=== PATIENT | female | born 1985 | race Caucasian/White ===

== ENCOUNTER 2017-04-19 04:48 | Emergency (ER) | payer MEDICAID, OTHER ==
[~2017-04-19] VITALS: Ht 160 cm; Wt 59.0 kg
[2017-04-19 04:58] VITALS: BP_SYST 113
[2017-04-19 05:46] LABS: BILIRUBIN,URINE NEGATIVE (NEGATIVE); BLOOD, URINE 2+ (NEGATIVE); CLARITY/URINE SL CLOUDY (CLEAR); COLOR,URINE ORANGE (YELLOW); GLUCOSE,URINE 1+ (NEGATIVE); KETONES,URINE TRACE (NEGATIVE); LEUKOCYTE ESTERASE ,URINE 2+ (NEGATIVE); NITRITE, URINE POSITIVE (NEGATIVE); PROTEIN URINE 2+ (NEGATIVE)
[2017-04-19 05:51] LABS: BACTERIA,URINE MODERATE /HPF (None Seen); WBC,URINE >100 /HPF (0-3)
[2017-04-19 05:55] VITALS: BP_SYST 113
[2017-04-21 02:22] LABS: CHLAMYDIA TRACHOMATIS NAA Negative (Negative); NEISSERIA GONORRHOEAE NAA Negative (Negative)
== END 2017-04-19 05:55 | disposition home or self-care (01) ==
LOC: SED 04:48
DX: N76.0 Acute vaginitis (principal); B96.89 Other specified bacterial agents as the cause of diseases classified elsewhere; G43.909 Migraine, unspecified, not intractable, without status migrainosus; Z88.8 Allergy status to other drugs, medicaments and biological substances
CPT/HCPCS: 81000-TC; 81025; 87086; 87210-TC; 87491; 87591; 99284

== ENCOUNTER 2019-11-22 11:23 | Emergency (ER) | payer MEDICAID ==
[~2019-11-22] VITALS: Ht 160 cm; Wt 59.9 kg
[2019-11-22 11:43] VITALS: BP_SYST 115
[2019-11-22] MEDS ORDERED: ONDANSETRON HCL 4 MG/2 ML VIAL IVP ONE (11:45)
[2019-11-22 12:12] LABS: BASOPHILS # (AUTO) 0.1 K/uL (0.0-0.2); BASOPHILS % (AUTO) 0.8 % (0.0-2.0); EOSINOPHILS % (AUTO) 0.2 % (0.0-4.0); HEMATOCRIT 37.9 % (36-48); HEMOGLOBIN 12.7 g/dL (12.0-16.0); LYMPHOCYTES % (AUTO) 14.8 % (20.5-51.5); MEAN CORPUSCULAR HEMOGLOBIN 33 pg (27-31); MEAN CORPUSCULAR HGB CONC 34 % (32-36); MEAN CORPUSCULAR VOLUME 98 fL (79.0-98.0); MONOCYTES # (AUTO) 0.2 K/uL (0.0-1.0); MONOCYTES % (AUTO) 3.1 % (1.7-9.3); NEUTROPHILS # (AUTO) 5.5 K/uL (1.8-7.7); NEUTROPHILS % (AUTO) 81.1 % (40.0-70.0); PLATELET COUNT (AUTO) 221 K/uL (130-430); RED BLOOD CELL COUNT(AUTO) 3.87 MIL/uL (4.2-6.2); WHITE BLOOD COUNT (AUTO) 6.8 K/uL (4.8-10.8)
[2019-11-22] MEDS ORDERED: IBUPROFEN 800 MG TABLET PO ONE (12:15)
[2019-11-22 12:25] LABS: ANION GAP 8 (5-15); CALCIUM 8.9 mg/dL (8.4-11.0); CHLORIDE 105 mmol/L (98-107); CREATININE 0.82 mg/dL (0.55-1.30); POTASSIUM 3.5 mmol/L (3.5-5.1); SODIUM SERUM 141 mmol/L (136-145); UREA NITROGEN, BLOOD 17 mg/dL (8-21)
[2019-11-22 12:28] LABS: INR 0.9 (0.8-1.2); PROTHROMBIN TIME 9.5 SECS (9.5-12.5)
[2019-11-22 12:29] LABS: GFR AFRICAN AMERICAN 102 mL/min (>90)
[2019-11-22 12:38] LABS: ALANINE AMINOTRANSFERASE 28 U/L (12-78); ALBUMIN 4.4 g/dL (3.4-4.8); ALCOHOL, BLOOD 4 mg/dL (<10); AMYLASE 55 U/L (0-100); ASPARTATE AMINOTRANSFERASE 22 U/L (10-37); LIPASE 106 U/L (73-393); TOTAL BILIRUBIN 0.2 mg/dL (0.0-1.0)
[2019-11-22 12:42] LABS: GLUCOSE 90 mg/dL (70-99)
[2019-11-22 12:43] LABS: ACETONE, SERUM NEGATIVE (NEGATIVE)
[2019-11-22 14:32] VITALS: BP_SYST 115
== END 2019-11-22 14:32 | disposition home or self-care (01) ==
LOC: SED 11:23
DX: K29.20 Alcoholic gastritis without bleeding (principal); F10.10 Alcohol abuse, uncomplicated; R51 Headache; Z88.8 Allergy status to other drugs, medicaments and biological substances; Y90.1 Blood alcohol level of 20-39 mg/100 ml
CPT/HCPCS: 36415; 80053; 81002; 81025; 82009; 82150; 83605; 83690; 85025; 85610; 85730; 96374; 99283; G0482; J2405

== ENCOUNTER 2023-09-14 03:06 | Emergency (ER) | payer BC, MEDICAID ==
[~2023-09-14] VITALS: Ht 160 cm; Wt 56.7 kg
[2023-09-14 03:17] VITALS: BP_SYST 126; PULSE 69; RESP 18; TEMP 97.7; O2SAT 98
[2023-09-14] MEDS ORDERED: NITROFURANTOIN MONOHYD/M-CRYST 100 MG CAPSULE (MacroBID) PO ONE (04:19)
[2023-09-14] MEDS: PHENAZOPYRIDINE HCL 100 MG TABLET PO ONE (04:21)
[2023-09-14] MEDS: nitrofurantoin macrocrystaL 50 MG CAPSULE PO ONE (04:22)
[2023-09-14 04:32] VITALS: BP_SYST 122; PULSE 65; RESP 18; TEMP 97.8; O2SAT 96
[2023-09-14 05:11] LABS: BILIRUBIN,URINE NEGATIVE (NEGATIVE); COLOR,URINE YELLOW (YELLOW); GLUCOSE,URINE NEGATIVE (NEGATIVE); KETONES,URINE NEGATIVE (NEGATIVE); LEUKOCYTE ESTERASE ,URINE 1+ (NEGATIVE); NITRITE, URINE NEGATIVE (NEGATIVE); PH,URINE 6.5 (5.0-8.0); PROTEIN URINE NEGATIVE (NEGATIVE); UROBILINOGEN,URINE 0.2 (0.2-1.0)
[2023-09-14 05:24] LABS: BLOOD, URINE TRACE (NEGATIVE); CLARITY/URINE SLIGHTLY CLOUDY (CLEAR)
[2023-09-14 05:26] LABS: BACTERIA,URINE MODERATE /HPF (None Seen); WBC,URINE 50-80 /HPF (0-3)
== END 2023-09-14 04:32 | disposition home or self-care (01) ==
LOC: SED 03:06
DX: N39.0 Urinary tract infection, site not specified (principal); G43.909 Migraine, unspecified, not intractable, without status migrainosus; Z88.8 Allergy status to other drugs, medicaments and biological substances
CPT/HCPCS: 81000; 81001; 81015; 81025; 87086; 87186; 99283